=== PATIENT | female | born 1925 | race Caucasian/White ===

== ENCOUNTER 2017-01-29 03:16 | Emergency (ER) | payer OTHER ==
--- NOTE | 2017-01-29 04:17 | PROVIDER DOCUMENTATION ---
HPI-General Adult - General Chief Complaint: Hip Pain Stated Complaint: FALL, LT HIP PAIN Time Seen by Provider: 01/29/17 03:25 Allergies/Adverse Reactions: Patient Allergies Allergy/AdvReac Type Severity Reaction Status Date / Time codeine [Codeine] Allergy Unknown Verified 01/29/17 03:29 Penicillins Allergy Unknown Verified 01/29/17 03:29 Sulfa (Sulfonamide Allergy Unknown Verified 01/29/17 03:29 Antibiotics) Home Medications: Home Medication List Medication Instructions Recorded Confirmed Last Taken Type Aspirin 81 mg PO DAILY 01/18/13 01/29/17 01/28/17 History Citalopram [Celexa] 20 mg PO DAILY 01/18/13 01/29/17 01/28/17 History Alprazolam 1 tab PO BID 04/27/14 01/29/17 01/28/17 History Ascorbic Acid [Vitamin C] 1 tab PO DAILY 04/27/14 01/29/17 01/28/17 History Cyanocobalamin (Vitamin B-12) 1 tab PO DAILY 04/27/14 01/29/17 01/29/17 History [Vitamin B-12] Acetaminophen [Tylenol] 650 mg PO Q6H PRN PRN #1 tablet 12/31/14 01/29/17 Rx BENAZEpril [Lotensin] 20 mg PO DAILY #30 tablet 12/31/14 01/29/17 01/28/17 Rx Diltiazem HCl [Cardizem Cd] 240 mg PO QHS #30 cap.er.24h 12/31/14 01/29/1701/28 Rx SIMVAstatin [Zocor] 20 mg PO HS #30 tablet 12/31/14 01/29/17 01/29/17 Rx Omeprazole [Prilosec] 20 mg PO QAM #30 capsule 01/24/15 01/29/17 01/29/17 Rx Cholecalciferol (Vit D3) [Vitamin 1 tab PO DAILY 01/29/17 01/29/17 01/28/17 History D3] Donepezil [Aricept] 1 tab PO DAILY 01/29/17 01/29/17 01/28/17 History Furosemide [Lasix] 20 mg PO DIRECTED 01/29/17 01/29/17 01/28/17 History Gabapentin [Neurontin] 1 tab PO TID 01/29/17 01/29/17 01/28/17 History Iron,Carbonyl/Ascorbic Acid [Fe C 1 tab PO DAILY 01/29/17 01/29/17 01/28/17 History Tablet] Isosorbide Mononitrate E.r. [Imdur] 30 mg PO BID 01/29/17 01/29/17 01/29/17 History Mirabegron E.r. [Myrbetriq E.r] 2 tab PO DAILY 01/29/17 01/29/17 01/28/17 History Mirtazapine 0.5 tab PO DAILY 01/29/17 01/29/17 01/29/17 History Montelukast Chew [Singulair] 1 tab PO DAILY 01/29/17 01/29/17 01/28/17 History - History of Present Illness -Gen Adult Pain Radiation: reports: buttocks Quality of Pain: reports: aching Severity: reports: mild Onset/Duration: reports: just prior to arrival Modifying Factors: improves with: nothing Associated Symptoms: reports: anxiety Review of Systems - Adult - REVIEW OF SYSTEMS - ADULT Constitutional: reports: no symptoms reported Eyes: reports: no symptoms reported Ears, Nose, Mouth & Throat: reports: no symptoms reported Cardiovascular: reports: no symptoms reported Respiratory: reports: no symptoms reported Gastrointestinal: reports: no symptoms reported Genitourinary: reports: no symptoms reported Musculoskeletal: reports: no symptoms reported Integumentary: reports: no symptoms reported Neurological: reports: no symptoms reported Psychiatric: reports: no symptoms reported Endocrine: reports: no symptoms reported Hematologic/Lymphatic: reports: no symptoms reported Allergic/Immunologic: reports: no symptoms reported All Other Systems: Reviewed and Negative Past History - Adult - PAST MEDICAL HISTORY-ADULT Review of Records: reports: Old Records Reviewed, Nursing Assessment Review, Medications Reviewed, Social history reviewed & non-contributory. Major Childhood Illnesses: reports: denies history Cardiovascular: reports: angina, CAD, HTN, hyperlipidemia, [place], other (echo with an EF 65% and 70%) Respiratory: reports: other (URI with bronchospasms) Gastrointestinal: reports: GERD Obstetrical/Gynecological: reports: denies history Genitourinary: reports: denies history Musculoskeletal: reports: arthritis, other (DJD) Neurological: reports: denies history Psychiatric: reports: other (mood and sleep disorder) Endocrine/Immune: reports: anemia Other Conditions: reports: denies history - PRIOR SURGERIES/PROCEDURES Surgical/Procedure History: reports: appendectomy, cholecystectomy, hysterectomy , other (vein stripping in the right leg) - IMMUNIZATION STATUS Childhood Immunizations: UTD Flu Vaccine: UTD - FAMILY HISTORY Family History: reviewed, not pertinent Physical Exam-General - PHYSICAL EXAM-ADULT Initial Vital Signs Reviewed: Yes - CONSTITUTIONAL General Appearance: alert - EYES Eyes: PERRL/EOMI - HEAD, EARS, NOSE, MOUTH & THROAT HENMT: normocephalic/atraumatic - NECK Neck: non-tender - RESPIRATORY Respiratory: chest non-tender - CARDIOVASCULAR Cardiovascular: normal peripheral pulses - LYMPHATIC Lymphatic: no adenopathy - MUSCULOSKELETAL Back Exam: no CVA tenderness Extremity: normal range of motion - NEUROLOGIC 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
[2017-01-29 05:02] VITALS: BP 115/52
--- NOTE | 2017-01-29 07:52 | Diag Imaging Result Document ---
PROCEDURE NAME: LUMBAR SPINE 2-VIEWS - 01/29/2017 LUMBAR SPINE AP AND LATERAL, TWO VIEWS: COMPARISON: Compared to 01/31/2016. FINDINGS: There is mild scoliosis. No compressed vertebra. No subluxation. There are small bone spurs throughout the lumbar spine. I believe there is a vacuum disk at L3-4. Moderate atherosclerosis. IMPRESSION: 1. No acute bony injury. 2. Mild scoliosis with moderate degenerative changes.
--- NOTE | 2017-01-29 07:58 | Diag Imaging Result Document ---
PROCEDURE NAME: XRAY PELVIS W/HIP 2-3VW LT - 01/29/2017 PELVIS AND LEFT HIP, THREE VIEWS: FINDINGS: No fracture. No dislocation. Prominent atherosclerosis. IMPRESSION: No acute bony injury.
== END 2017-01-29 05:02 | disposition home or self-care (01) ==
LOC: ED 03:16
DX: S79.912A Unspecified injury of left hip, initial encounter (principal); M25.552 Pain in left hip; M79.1 Myalgia; I20.9 Angina pectoris, unspecified; I25.10 Atherosclerotic heart disease of native coronary artery without angina pectoris; I10 Essential (primary) hypertension; E78.5 Hyperlipidemia, unspecified; I25.2 Old myocardial infarction; Z79.899 Other long term (current) drug therapy; K21.9 Gastro-esophageal reflux disease without esophagitis; M19.90 Unspecified osteoarthritis, unspecified site; Z79.82 Long term (current) use of aspirin; W19.XXXA Unspecified fall, initial encounter
CPT/HCPCS: 72100; 99283